=== PATIENT | female | born 1950 | race Caucasian/White ===

== ENCOUNTER → 2016-09-08 | Outpatient (CLI) | payer BC ==
[~2016-09-08] MED LIST: AMBIEN10 MG PO; AVAPRO PO; ELIQUIS5 MG PO; FERROUS SULFATE PO; FLONASE16 GM; HCTZ PO; LO-DOSE ASPIRIN81 M1 PO; LOSARTAN POTASS50 MG PO; MELATONIN10 M1 PO; METOPROLOL SUCC25 MG PO; MULTI-VITAMIN1 TAB PO; PRILOSEC PO; REQUIP1 MG PO; VENLAFAXINE H37.5 MG PO; ZYRTEC10 M1 PO
--- NOTE | ~2016-09-08 | US6 ---
[facility] A Service of [facility] / [facility] RADIOLOGY TEXT RESULTS PATIENT: IOANA REGAN LOCATION: [facility] : 54 UNIT #: [id number] AGE: [address]: Otto Walter MD SEX: F ORDER DR: [id number] [facility] [address] [facility]. [place], [place] [address] [id number] O MR#: [id number] Acc #: [id number] NAME: IOANA REGAN : 1950 SEX: F STUDY DATE/TIME: 09/08/2016 8:50 UNIT: [facility] ROOM: STUDY DESCRIPTION: US Abdominal Limited Attending Physician: Otto Walter M.D. Referring Physician: Otto Walter M.D. Ordering Physician: Otto Walter M.D. Primary Care Physician: Otto Walter M.D. MEDICAL IMAGING REPORT This report is preliminary unless electronic signature is present EXAM Right upper quadrant ultrasound, 09/08/2016 HISTORY Abnormally elevated liver enzymes on 09/08/2016. FINDINGS The liver demonstrates an increase in echotexture with attenuation of the ultrasound beam characteristic of fatty infiltration. No cystic or solid mass lesions were seen in the liver. The intra and extrahepatic bile ducts are not dilated. The gallbladder contains large shadowing gallstones but there is no evidence of gallbladder wall thickening or pericholecystic fluid. The common duct measures 4.0 mm. The pancreas and right kidney are normal. IMPRESSION 1. Cholelithiasis. 2. Mild fatty infiltration of the liver. Dictated by... Andrae Negro M.D. THIS IS AN ELECTRONICALLY VERIFIED REPORT Andrae Negro M.D. at 09/08/2016 4:42 PM Melissa TD: 09/08/2016 12:15 JOB #: [id number] MEDICAL IMAGING REPORT Page 1 of 1 COPY
== END | disposition home or self-care (01) ==
LOC: CGUS 08:27
DX: R94.5 Abnormal results of liver function studies (principal); K76.0 Fatty (change of) liver, not elsewhere classified; K80.20 Calculus of gallbladder without cholecystitis without obstruction
CPT/HCPCS: 76705

== ENCOUNTER → 2017-01-15 | Outpatient (CLI) | payer BC ==
--- NOTE | ~2017-01-15 | EKG ---
PATIENT: IOANA REGAN UNIT #: [id number] Ventricular Rate: 83 BPM Atrial Rate: 70 BPM QRS Duration: 104 ms Q-T Interval: 378 ms QTC Calculation(Bezet): 444 ms Calculated R [place]: -31 degrees Calculated T [place]: 0 degrees Diagnosis Line: Atrial fibrillation Diagnosis Line: Left axis deviation Diagnosis Line: Poor R wave progression questionable lead position Diagnosis Line: or body habitus Diagnosis Line: Abnormal ECG Diagnosis Line: No previous ECGs available Diagnosis Line: Confirmed by HAYDEN MAGUIRE MD ([id number]) on Diagnosis Line: 01/15/2017 9:47:39 PM INTERPRETING MD: ADAN
[2017-01-15 16:55] LABS: CALCIUM SERUM 10.2 mg/dL (8.4-10.2); GLOM FILT RATE Estimated 59.5 mL/min (>60); POTASSIUM 4.7 mmol/L (3.5-5.1)
== END | disposition home or self-care (01) ==
LOC: CAMB 15:00 → EDSTATUS 15:00 → CAMB 15:02
PROVIDERS: Surgery
DX: Z01.818 Encounter for other preprocedural examination (principal)
CPT/HCPCS: 36415; 80048; 93005

== ENCOUNTER → 2017-01-26 | Day surgery (SDC) | payer BC ==
--- NOTE | ~2017-01-26 | OR ---
Unit #: [id number] #: [id number] Patient: IOANA REGAN [id number] [address] [place], [place] [address] [id number] O MR#: [id number] NAME: IOANA REGAN ROOM: Date of Procedure: 01/26/2017 Admission Date: 01/26/2017 Surgeon: Dean Encarnacion Jr., M.D. : 1950 Attending Physician: Dean Encarnacion Jr., M.D. Primary Care Physician: tOto Walter M.D. OPERATIVE REPORT INDICATIONS FOR PROCEDURE The patient is a 66-year-old white female, who has had intermittent mid epigastric and right upper quadrant abdominal pains. She was recently noted to have some elevation of her liver function tests and ultrasound revealed evidence of gallstones. She is brought in at this time for laparoscopic cholecystectomy with possible cholangiograms or liver biopsy. She understands the procedure including the risk and consents. PREOPERATIVE DIAGNOSES Cholecystitis with cholelithiasis and biliary colic. POSTOPERATIVE DIAGNOSES Cholecystitis with cholelithiasis and biliary colic, also noting macronodular cirrhosis. The cystic duct was very small and her gallstones are moderate-sized. ANESTHESIA General with endotracheal intubation and 0.5% Marcaine with epinephrine locally in the port sites. PROCEDURE PERFORMED Laparoscopic cholecystectomy with needle liver biopsy x2. DESCRIPTION OF PROCEDURE The patient was positioned in the supine position and after being anesthetized and intubated, she was prepped and draped in routine fashion for laparoscopic cholecystectomy. A small supraumbilical incision was made approximately 1 cm in length. This was carried down to the fascia. The fascia and umbilicus were lifted with a towel clip, and a Veress needle introduced into the abdomen. The abdomen was then inflated with CO2 gas. A 5-mm port was introduced into the abdomen followed by the camera. There was no evidence of any injury related to introduction of the port of the Veress needle. Brief intra-abdominal exploration was carried out. The patient was noted to have some adhesions in the lower abdomen from her previous surgery and macronodular cirrhosis with chronically inflamed gallbladder in appearance. Two 5-mm ports were placed laterally and 11-mm port just to the right of the upper midline. Instantly, there was no evidence of any ascites. The gallbladder was lifted. Multiple adhesions were dissected free by both hook scissors and blunt dissection. After mobilizing the gallbladder down towards the area of the triangle of Calot, cystic duct which was only approximately 1 mm in diameter was isolated, hemoclipped x4 and divided approximately a Unit #: [id number] #: [id number] Patient: IOANA REGAN A centimeter from its junction with the common duct. Cystic artery was identified, hemoclipped x3, and divided. The gallbladder was then removed from its bed with the hook cautery using a current of 20 and after it was released from the liver, it was brought out through the upper larger port site and sent to Pathology. The port was replaced. Subhepatic space checked. There was no evidence of any bleeding from the gallbladder bed. The clips on cystic duct and cystic artery were intact with no evidence of any leak or bleeding. The liver needle biopsy was performed with a Prakash-Cut needle with two cores being taken from the right lobe of the liver without significant bleeding. These were sent to Pathology, and the biopsy site was coagulated with the hook cautery using a current of 20. After total hemostasis was noted, the clips on cystic duct and cystic artery were again checked and noted to be adequate with no evidence of any leaks or bleeding. The common duct appeared normal in size on visualization. The CO2 was expressed from the abdomen. The fascia in the larger port site was approximated with the neoClose technique and the ports were removed. There was no evidence of any bleeding from the port sites. The port sites were injected with 0.5% Marcaine with epinephrine locally. The wounds were irrigated and after hemostasis achieved with Bovie cautery, skin edges were approximated with stainless-steel skin clips with skin stapling device. Sterile dressings were applied externally. Estimated blood loss less than 50 mL. The patient received less than 1500 mL crystalloid solution during the procedure. Sponges and instrument counts were correct x3. No drains used. No complications. The patient was taken to the recovery room with stable vital signs in satisfactory condition. Dictated by... Dean Encarnacion Jr., M.D. JMB/mariana TD: 01/26/2017 14:50 JOB #: [id number] CC: Otto Walter M.D. OPERATIVE REPORT Page 1 of 1 X Dean Encarnacion MD PROCEDURE OPERATIVE NOTE
[2017-01-26 12:32] LABS: ALBUMIN SERUM 3.3 g/dL (3.5-5.0); BILIRUBIN,TOTAL 0.5 mg/dL (0.2-2.0); CALCIUM SERUM 9.4 mg/dL (8.4-10.2); CREATININE SERUM 0.8 mg/dL (0.6-1.4); POTASSIUM 4.7 mmol/L (3.5-5.1); PROTEIN TOTAL SERUM 6.2 g/dL (6.0-8.3)
== END | disposition home or self-care (01) ==
LOC: CSUR 09:18
PROVIDERS: Surgery
DX: K73.1 Chronic lobular hepatitis, not elsewhere classified (principal); K80.10 Calculus of gallbladder with chronic cholecystitis without obstruction; K76.0 Fatty (change of) liver, not elsewhere classified; K72.90 Hepatic failure, unspecified without coma; K74.0 Hepatic fibrosis; K21.9 Gastro-esophageal reflux disease without esophagitis; E89.2 Postprocedural hypoparathyroidism; I48.91 Unspecified atrial fibrillation; I10 Essential (primary) hypertension; F41.1 Generalized anxiety disorder; J30.9 Allergic rhinitis, unspecified; M19.90 Unspecified osteoarthritis, unspecified site; E66.01 Morbid (severe) obesity due to excess calories; G47.30 Sleep apnea, unspecified; Z68.39 Body mass index [BMI] 39.0-39.9, adult; Z85.038 Personal history of other malignant neoplasm of large intestine; Z88.1 Allergy status to other antibiotic agents; Z79.899 Other long term (current) drug therapy; Z79.82 Long term (current) use of aspirin; Z98.890 Other specified postprocedural states
CPT/HCPCS: 80053; 88304; 88307; 88313; J0330; J1650; J1885; J2250; J2405; J2710; J3010; J3370